=== PATIENT | female | born 1985 | race Caucasian/White ===

== ENCOUNTER 2020-06-12 11:27 | Emergency (ER) | payer SELFPAY ==
[2020-06-12 11:28] VITALS: BP 147/82; PULSE 122; RESP 16; TEMP 36.2; O2SAT 100; BMI 20.1
--- NOTE | 2020-06-12 12:13 | CT_ITS ---
EXAM: CT ABDOMEN AND PELVIS WITH INTRAVENOUS CONTRAST CLINICAL INDICATION: LLQ pain, bright blood in stool. No prior abdomen surgery. TECHNIQUE: Helically acquired images were obtained of the abdomen and pelvis with intravenous contrast. This CT exam was performed using one or more of the following dose reduction techniques: automated exposure control, adjustment of the mA and/or kV according to patient size, and/or use of iterative reconstruction technique. This report was created using [employer] report generation technology. CONTRAST: IV 100mL Isovue-370 COMPARISON: None. FINDINGS: LOWER THORAX: Unremarkable. Lung bases are clear. No cardiomegaly. No significant pericardial effusion. ABDOMEN: LIVER: Unremarkable. Homogeneous. No focal mass. GALLBLADDER AND BILE DUCTS: The gallbladder is contracted. No calcified gallstones. No gallbladder distention or wall edema. No intra- or extrahepatic biliary ductal dilation. PANCREAS: Unremarkable. No focal cystic or solid mass. SPLEEN: Unremarkable. Normal size without focal cystic or solid mass. ADRENALS: Unremarkable. No nodules. KIDNEYS AND URETERS: Unremarkable. Normal renal size and position. No hydronephrosis. STOMACH AND BOWEL: Moderate fecal retention. No stomach or bowel distention. No focal inflammatory change. PELVIS: APPENDIX: No evidence of acute appendicitis. BLADDER: Unremarkable. REPRODUCTIVE: Unremarkable as visualized. No mass. ABDOMEN and PELVIS: INTRAPERITONEAL SPACE: Small ovarian follicles. No pelvic free fluid. No free air. BONES/JOINTS: Unremarkable. No suspicious lytic or blastic abnormality. SOFT TISSUES: Unremarkable. No discrete abdominal or pelvic wall hernia. VASCULATURE: Unremarkable. Abdominal aorta is non-dilated. LYMPH NODES: Unremarkable. No enlarged lymph nodes. CT/Abdomen/Pelvis W IV Cont ONLY IMPRESSION: No acute inflammatory process or bowel obstruction. Electronically Signed: Chuck Dorsey MD ([place]) at 14:12 EST , Service support ,
[2020-06-12 12:47] LABS: Bacteria 0 SEEN /hpf (None Seen); Color, Urine Yellow (Yellow); Glucose, Dipstick Normal (Normal); Ketone-Dipstick Negative (Negative); Leukocyte Esterase-Dipstick 500 /ul (Negative); Mucous, Urine 0 SEEN /hpf (<or=2+); Nitrite-Dipstick Negative (Negative); Occult Blood-Urine 150 /ul (Negative); Protein-Dipstick Negative (Negative); Red Blood Cells-Urine 0 SEEN /hpf (0-5); Specific Gravity, Urine 1.015 (1.002-1.030); Urine Bilirubin Dipstick Negative (Negative); Urine Clarity Sl. Cloudy (Clear); Urine Urobilinogen Normal (Normal)
[2020-06-12 12:55] LABS: Squamous Epithelial Cells - UA 5-10 SEEN /hpf (5-10); White Blood Cells 5-10 SEEN /hpf (0-5)
[2020-06-12 13:21] LABS: ALB/GLOB Ratio 0.9 RATIO (0.9-2.4); AST(SGOT) 13 U/L (15-37); Alanine Aminotransfer ALT/SGPT 17 U/L (13-56); Albumin, Serum 3.7 g/dL (3.2-5.0); Alkaline Phosphatase 74 U/L (45-117); Anion Gap 4 (5-15); BUN 9 mg/dL (7-18); BUN/Creat Ratio 13.7 RATIO (10-20); Chloride 106 mmol/L (98-107); Creatinine, Serum 0.66 mg/dL (0.55-1.02); EST Glomerular Filtration Rate 109 mL/min (>60); Est Glom Filt Rate - Afr Amer 132 mL/min (>60); Estimated Creatinine Clearance 106.49 ml/min; Glucose 75 mg/dL (74-106); Lipase 52 U/L (73-393); Potassium 3.9 mmol/L (3.5-5.1); Protein, Total 7.7 g/dL (6.4-8.2); Sodium Level 138 mmol/L (136-145)
[2020-06-12] MEDS: 0.9% Normal Saline 1,000 ML 1000 ML IV (13:24)
--- NOTE | 2020-06-12 13:33 | ED.DCSUM_ITS ---
History of Present Illness Chief Complaint: Abscess Informant: Patient Narrative: 34-year-old female presenting with 2 main complaints. The first 1 is an abscess that is formed on her left upper arm. Patient states she thinks she got bit by a spider while trying on close at the store. She remembers that this stating it felt like a bite. She had since that time she has had erythema and swelling. She also has drainage from the area on the left shoulder. Patient has not had fever, chills. Patient also states that this morning she had blood in her stool. She states it is more than just when I wipe. Patient does not have any history of bleeding. She is not on a blood thinner. Denies any trauma. She denies history of hemorrhoids. States that she does have some lower abdominal pain which is associated with this. Past Medical History - Allergies and Home Meds Allergies/Adverse Reactions: Allergies No Known Allergies Allergy (Verified 06/12/20 11:28) Primary Care Physician: Jean Marie Oliveros MD [STAFF PHYSICIAN] - Gerson Luna MD [STAFF PHYSICIAN] - Care Physician,No Primary [Primary Care Provider] - Prior records reviewed: Yes Past Medical History: - - Significant medical history Surgical History: noncontributory Lives: Alone Smoking Status: Current every day smoker Alcohol: None Drugs: None Review of Systems General: Reports: Malaise. Denies: Chills, Fever Eyes: Denies: Visual changes - bilaterally, Diplopia ENT: Reports: Bilateral ear pain Cardiovascular: Denies: Chest pain, Palpitations Respiratory: Denies: Dyspnea, Cough, Dyspnea on exertion Gastrointestinal: Reports: Abdominal pain, Hematochezia Genitourinary: Denies: Dysuria, Hematuria Musculoskeletal: Denies: Myalgias, Arthralgias Skin: Reports: Abscess - Upper arm Neurological: Denies: Headache, Weakness Psych: Denies: Depression, Anxiety Physical Exam Vital Signs/Narrative: Vital Signs Temp Pulse Resp BP Pulse Ox 06/12/20 11:28 97.1 F L 122 H 16 147/82 H 100 Inital Vital Signs reviewed: Yes General: Well nourished, No Acute Distress Head: Normocephalic, Atraumatic Eyes: Perrl, EOMI ENT: Moist mucous membranes, No rhinorrhea Cardiovascular: Regular rate, Regular rhythm Abdomen: Soft, Nondistended Rectal: Guaiac positive, - - Small nonbloody nonthrombosed external hemorrhoid Skin: - - 4 cm area abscess in the left upper anterior arm which is actively draining centrally. There is surrounding cellulitic change. Neurological: Alert, Oriented x3 Psychological: Normal affect, Normal Mood Diagnostic/Tx/Re-eval Clinical Impression(s) from Imaging Studies Abdomen/Pelvis CT 06/12/20 12:13 IMPRESSION: No acute inflammatory process or bowel obstruction. Electronically Signed: Chuck Dorsey MD ([place]) at 14:12 EST , Service support , Laboratory Data 06/12/20 06/12/20 06/12/20 12:38 12:55 12:55 WBC Cancelled Corrected WBC Cancelled RBC Cancelled Hgb Cancelled Hct Cancelled MCV Cancelled MCH Cancelled MCHC Cancelled RDW Std Deviation Cancelled RDW Coeff of Marisol Cancelled Plt Count Cancelled MPV Cancelled Immature Gran % (Auto) Cancelled Neut % (Auto) Cancelled Lymph % (Auto) Cancelled Whitman % (Auto) Cancelled Eos % (Auto) Cancelled Baso % (Auto) Cancelled Absolute Neuts (auto) Cancelled Absolute Lymphs (auto) Cancelled Total Counted Cancelled Neutrophils % (Manual) Cancelled Band Neutrophils % Cancelled Lymphocytes % (Manual) Cancelled Monocytes % (Manual) Cancelled Eosinophils % (Manual) Cancelled Basophils % (Manual) Cancelled Metamyelocytes % Cancelled Myelocytes % Cancelled Promyelocytes % Cancelled Blast Cells % Cancelled Plasma Cell % (Manual) Cancelled Other Cells % Cancelled Nucleated RBC % Cancelled Nucleated RBCs/100 WBC Cancelled Differential Comment Cancelled Diff Path Review Cancelled Hypersegmented Neuts Cancelled Atypical Lymphocytes Cancelled Reactive Lymphocytes Cancelled Smudge Cells Cancelled Toxic Granulation Cancelled Toxic Vacuolation Cancelled Dohle Bodies Cancelled Loan Rods Cancelled Platelet Estimate Cancelled Plt Morphology Comment Cancelled RBC Morphology Cancelled Polychromasia Cancelled Hypochromasia Cancelled Poikilocytosis Cancelled Basophilic Stippling Cancelled Anisocytosis Cancelled Microcytosis Cancelled Macrocytosis Cancelled Spherocytes Cancelled Sickle Cells Cancelled Target Cells Cancelled Tear Drop Cells Cancelled Ovalocytes Cancelled Stomatocytes Cancelled [place] Bodies Cancelled [place] Cells Cancelled Bite Cells Cancelled Crenated Cell Cancelled Acanthocytes (Spur) Cancelled Rouleaux Cancelled Schistocytes Cancelled Sodium 138 Potassium 3.9 Chloride 106 Carbon Dioxide 28.0 Anion Gap 4 L BUN 9 Creatinine 0.66 Estim Creat Clear Calc 106.49 Est GFR (MDRD) Af Amer 132 Est GFR (MDRD) Non-Af 109 BUN/Creatinine Ratio 13.7 Glucose 75 Calcium 9.0 Total Bilirubin 0.30 AST 13 L ALT 17 Alkaline Phosphatase 74 Total Protein 7.7 Albumin 3.7 Globulin 4.0 Albumin/Globulin Ratio 0.9 Lipase 52 L Serum , Qual Urine Color Yellow Urine Clarity Sl. Cloudy Urine pH 7.0 Ur Specific [place] 1.015 Urine Protein Negative Urine Glucose (UA) Normal Urine Ketones Negative Urine Occult Blood 150 H Urine Nitrite Negative Urine Bilirubin Negative Urine Urobilinogen Normal Ur Leukocyte Esterase 500 H Urine RBC 0 SEEN Urine WBC 5-10 SEEN Ur Squamous Epith Cells 5-10 SEEN Urine Bacteria 0 SEEN Urine Mucus 0 SEEN 06/12/20 06/12/20 13:20 13:24 WBC 8.9 Corrected WBC RBC 4.38 Hgb 13.1 Hct 40.0 MCV 91.3 MCH 29.9 MCHC 32.8 RDW Std Deviation 42.3 RDW Coeff of Marisol 12.6 Plt Count 272 MPV 9.3 Immature Gran % (Auto) 0.400 Neut % (Auto) 63.9 Lymph % (Auto) 26.1 Whitman % (Auto) 8.4 Eos % (Auto) 0.8 Baso % (Auto) 0.4 Absolute Neuts (auto) 5.7 Absolute Lymphs (auto) 2.32 Total Counted Neutrophils % (Manual) Band Neutrophils % Lymphocytes % (Manual) Monocytes % (Manual) Eosinophils % (Manual) Basophils % (Manual) Metamyelocytes % Myelocytes % Promyelocytes % Blast Cells % Plasma Cell % (Manual) Other Cells % Nucleated RBC % 0 Nucleated RBCs/100 WBC Differential Comment Diff Path Review Hypersegmented Neuts Atypical Lymphocytes Reactive Lymphocytes Smudge Cells Toxic Granulation Toxic Vacuolation Dohle Bodies Loan Rods Platelet Estimate Plt Morphology Comment RBC Morphology Polychromasia Hypochromasia Poikilocytosis Basophilic Stippling Anisocytosis Microcytosis Macrocytosis Spherocytes Sickle Cells Target Cells Tear Drop Cells Ovalocytes Stomatocytes [place] Bodies [place] Cells Bite Cells Crenated Cell Acanthocytes (Spur) Rouleaux Schistocytes Sodium Potassium Chloride Carbon Dioxide Anion Gap BUN Creatinine Estim Creat Clear Calc Est GFR (MDRD) Af Amer Est GFR (MDRD) Non-Af BUN/Creatinine Ratio Glucose Calcium Total Bilirubin AST ALT Alkaline Phosphatase Total Protein Albumin Globulin Albumin/Globulin Ratio Lipase Serum , Qual NEGATIVE Urine Color Urine Clarity Urine pH Ur Specific [place] Urine Protein Urine Glucose (UA) Urine Ketones Urine Occult Blood Urine Nitrite Urine Bilirubin Urine Urobilinogen Ur Leukocyte Esterase Urine RBC Urine WBC Ur Squamous Epith Cells Urine Bacteria Urine Mucus - Medical Decision Making Patient presents with abscess on the left upper arm which is actively draining with small amount of surrounding cellulitis. She is fairly convinced that he was actually bit by a spider. Patient also complains of some lower abdominal pain as well as a small amount of blood in her stool this morning. Patient was found to be Hemoccult positive and no blood was visualized. She had a small nonbleeding nonthrombosed hemorrhoid. Patient's hemoglobin is stable however. She is not hypotensive. From the standpoint I feel she is safe to be discharged home and was given follow-up with Dr. Oliveros as well as the on-call primary care. I did obtain a CT scan of her abdomen pelvis given she had some lower abdominal pain however this was negative for acute findings. Patient's abscess was actively draining I did incise the area and made a incision in the midline however patient asked me to stop the incision. She did let me partially deloculated however again she did ask me to stop. I counseled her that likely there are more the loculations and there and the incision and drainage is incomplete. She did however let me irrigate it some. Patient will be started on Bactrim with first dose given in the ED. Again she was given follow-up as well as return precautions. Impression: 1. Abscess left arm 2. Abdominal pain 3. GI bleed stable Procedures Procedure(s): Incision and drainage: Patient's abscess on her left arm was cleansed with chlorhexidine. Approximately 7 cc of lidocaine with out epinephrine was injected into the abscess and around surrounding skin. Incision was made centrally and extended to 1.5 cm. Purulent drainage was expressed. Wound was partially loculated however on patient request ID was stopped. ED Disposition - Plan for ED Patient: Disposition: Home or Assisted Living Instructions: ED Abscess Incision And Drainage, ED Cellulitis, ED Lower GI Bleeding (Stable) Prescriptions: Smz/Tmp Ds [Bactrim Ds] 1 tab PO BID #14 tab Transmission Status: Received by [id number] Referrals: Care Physician,No Primary [Primary Care Provider] - Jean Marie Oliveros MD [STAFF PHYSICIAN] - Gerson Luna MD [STAFF PHYSICIAN] -
[2020-06-12 13:40] LABS: Internal QC Validated? YES +Cl - CLEAR BKGD; Pregnancy, Serum, hCG Quali. NEGATIVE Negative
[2020-06-12 14:08] LABS: Absolute Lymphocyte Count 2.32 X10^3/uL (0.83-4.51); Absolute Neutrophil Count 5.7 X10^3/uL (2.0-7.7); Basophil# 0.04 X10^3/uL; Basophil% 0.4 % (0-1); Eosinophil# 0.07 X10^3/uL; Eosinophils% 0.8 % (0-5); Hemoglobin 13.1 g/dL (12.0-15.0); Lymphocyte # 2.32 X10^3/ul (4.0); Lymphocyte % 26.1 % (19-41); Mean Corp Hgb Conc 32.8 g/dL (32-36); Mean Corpuscular Hgb 29.9 pg (27.0-32.0); Mean Corpuscular Volume 91.3 fL (81-99); Mean Platelet Vol. 9.3 fl (6.2-12.0); Monocyte# 0.75 X10^3/uL; Monocyte% 8.4 % (0-10); NRBC Flagged by Analyzer 0 % (0-5); Neutrophil # 5.67 X10^3/uL (2.7-7.7); Neutrophil % 63.9 % (47-70); Platelet Count 272 K/mm3 (150-450); RBC Distribution Width CV 12.6 % (11.6-14.6); RBC Distribution Width SD 42.3 fl (35.1-43.9); Red Blood Count 4.38 M/mm3 (4.2-5.4); White Blood Count 8.9 K/mm3 (4.4-11.0)
[2020-06-12] MEDS: Smz/Tmp Ds Tablet 1 TABLET PO (15:26)
== END 2020-06-12 15:51 | disposition home or self-care (01) ==
PROVIDERS: Emergency Provider Student in an Organized Health Care Education/Training Program
DX: L02.414 Cutaneous abscess of left upper limb (principal); R10.32 Left lower quadrant pain; K92.1 Melena; K64.4 Residual hemorrhoidal skin tags; F17.200 Nicotine dependence, unspecified, uncomplicated
CPT/HCPCS: 10060; 74177; 80053; 81001; 82274; 83690; 84703; 85025; 96360; 96361; 99283; J7030; Q9967; A4216

== ENCOUNTER 2020-12-18 21:31 | Emergency (ER) | payer SELFPAY ==
[2020-12-18 21:32] VITALS: BP 160/99; PULSE 99; RESP 18; TEMP 36.2; O2SAT 98; BMI 19.3
--- NOTE | 2020-12-18 21:45 | RAD_ITS ---
HISTORY: trauma EXAMINATION/TECHNIQUE: XR Foot Min 3 Views: COMPARISON: None FINDINGS: BONES/JOINTS: No acute fracture or dislocation. Preservation of the joint spaces. No sclerotic or destructive changes observed. SOFT TISSUES: No soft tissue swelling or gas. Punctate radiodense foreign body in the soft tissues distal to the distal tuft fourth digit. RAD/Foot min 3 Views IMPRESSION: No acute bony abnormality. Punctate radiodense foreign body in the distal soft tissues of the fourth digit. at 2226 Reported and signed by: Siddhartha Nicole MD Electronically Signed: Siddhartha Nicole MD at 22:24 EDT Tel , Service support ,
--- NOTE | 2020-12-18 22:53 | ED.VIS.LOWEX ---
HPI History of Present Illness Chief Complaint: Laceration Informant: patient Narrative Narrative: Patient states that a piece of board with a nail fell onto her foot. The patient states her last tetanus shot was 1 year ago. Patient noted to be screaming sitting in the bed uncontrollably crying.34-year-old female presents the emergency room with laceration over the dorsum of the [facility] Medical History Anxiety Seizure Home Medications NK 12/18/20 [History Last Taken Unknown] Allergy/AdvReac Type Severity Reaction Status Date / Time No Known Allergies Allergy Verified 12/18/20 21:32 Social History (Updated 12/18/20 @ 22:[address] Jean Marie Cullen DO) Smoking Status: Current every day smoker tobacco type: cigarettes substance use type: marijuana ROS ROS ED Constitutional Constitutional ED: Denies chills or weight loss Eyes Eyes: Denies change in vision or diplopia ENT ENT ED: Denies ear pain, rhinorrhea or sore throat Cardiovascular Cardiovascular: Denies chest pain, orthopnea, palpitations or racing heartbeat Respiratory/Chest Respiratory/Chest: Denies cough, dyspnea or orthopnea Gastrointestinal Gastrointestinal: Denies abdominal pain, diarrhea, nausea or vomiting Genitourinary Genitourinary ED: Denies dysuria, hematuria or urinary frequency Musculoskeletal Musculoskeletal: Denies arthralgias or myalgias Integumentary Reports other Details: See HPI ; Denies abscess or rash Neurologic Neurologic: Denies headache(s) or weakness Psychiatric Psychiatric: Denies anxiety, depression, suicidal ideation or suicidal thoughts Endocrine Endocrinology: Denies polydipsia, polyphagia or polyuria Allergic/Immunologic Allergic/Immunologic ED: Denies mouth swelling, tongue swelling or urticaria EXAM Physical Exam Narrative Exam Narrative: The room smells heavily of marijuana. The patient and her significant other are at times sleeping and other times she is screaming and crying. Const Vital Signs: 12/18/20 21:32 Temperature 97.1 F L Temperature Source Temporal Pulse Rate 99 Respiratory Rate 18 Blood Pressure 160/99 H Blood Pressure Mean 119 Pulse Ox 98 Oxygen Delivery Method Room Air Positive well nourished and well developed General Appearance ED: well developed HEENT Reports normocephalic, head/scalp atraumatic and moist mucous membranes Eyes PERRL and EOMs intact bilaterally Neck no lymphadenopathy, supple and no JVD Resp normal respiratory effort and clear to auscultation bilaterally Cardio regular rate, regular rhythm and no murmurs GI normal to inspection, nondistended, normoactive bowel sounds and non-tender Palpation: soft Back/Spine no CVA tenderness and normal ROM Extremity Extremity Narrative: Right wheel truing machine tender to palpation General Extremety ED: Negative for edema General Extremity: Negative for edema Neuro oriented x3 and CN's II-XII intact bilaterally Sensorium / Orientation: alert Motor Exam: strength 5/5 throughout Psych mental status grossly normal Mood & Affect: Negative for depressed or tearful Skin no rashes or lesions noted Skin Narrative: Just proximal to the fifth MCP joint is a horizontally angled laceration measuring approximately 2.5 cm. Neurovascular intact Rashes: no rashes MDM MDM MDM Narrative Medical decision making narrative: My interpretation of plain films of the foot is no acute fracture. Wound was locally anesthetized using 1% lidocaine and explored. There appears to be an extensor tendon to the fifth digit that appears to be lacerated. Wound was irrigated with 200 cc of sterile saline washed with Shur-Clens. It was closed using 6 simple interrupted 4-0 Ethilon sutures. Patient will be advised to follow-up with podiatry. I will get start her on Keflex Radiography Diagnostic Testing: Radiology Impression Foot X-Ray 12/18/20 21:45 IMPRESSION: No acute bony abnormality. Punctate radiodense foreign body in the distal soft tissues of the fourth digit. at 2226 Reported and signed by: Siddhartha Nicole MD Electronically Signed: Siddhartha Nicole MD at 22:24 EDT Tel , Service support , Discharge Plan Triage Chief Complaint: Laceration ED Provider: Jean Marie Cullen Dx/Rx/DC Orders Clinical Impression: Laceration of dorsum of right foot, Laceration of extensor tendon of foot Instructions: ED Laceration, Foot: All Closures, ED Tendon Laceration Prescriptions: No Action NK RF: 0 Primary Care Provider: Care Physician,No Primary Referrals: Rebecca Gonzales DPM [STAFF PHYSICIAN] - As soon as possible Care Physician,No Primary [Primary Care Provider] - Disposition Disposition: Home, Self Care
[2020-12-18] MEDS: Cephalexin 250 MG Capsule 500 MG PO (23:06)
[2020-12-18] MEDS: Lidocaine 1% (20 ml mdv) 20 ML Vial INFILT (23:06)
== END 2020-12-18 23:17 | disposition home or self-care (01) ==
PROVIDERS: Emergency Provider Emergency Medicine
DX: S91.311A Laceration without foreign body, right foot, initial encounter (principal); W20.8XXA Other cause of strike by thrown, projected or falling object, initial encounter; Y93.9 Activity, unspecified; Y92.9 Unspecified place or not applicable; Y99.9 Unspecified external cause status; F17.210 Nicotine dependence, cigarettes, uncomplicated
CPT/HCPCS: 12001; 73630; 99284

== ENCOUNTER 2021-03-27 14:27 | Emergency (ER) | payer SELFPAY ==
[2021-03-27 14:27] VITALS: BP 128/86; PULSE 127; RESP 20; TEMP 38.7; O2SAT 100; BMI 20.9
--- NOTE | 2021-03-27 15:08 | CT_ITS ---
STUDY: CT ABDOMEN AND PELVIS WITH CONTRAST REASON FOR EXAM: Female, 35 years old. Abdominal pain right lower quadrant pain RADIATION DOSAGE (If Supplied By Facility): CTDIvol = ( 10.71 ) mGy, DLP = ( 422.92 ) mGycm TECHNIQUE: CT images were obtained from the dome of the diaphragm to the symphysis pubis without oral contrast. Oral and amp; IV Gastrografin and amp; 100mL Isovue-370 was administered. Sagittal and coronal images were reconstructed. Individualized dose optimization techniques were used for this CT. COMPARISON: 12 June 2020 FINDINGS: The visualized lung bases are unremarkable. The visualized portions of the heart are within normal limits. Normal liver. Normal gallbladder and extrahepatic biliary system. Normal spleen. Normal pancreas. Normal bilateral adrenal glands. There is right nephritis. Left kidney is normal. There are no stones or hydronephrosis. Normal visualized stomach. Normal small intestine. Normal colon. The appendix is visualized and appears normal. Normal abdominal aorta. Normal inferior vena cava. Normal retroperitoneum. Normal urinary bladder. Normal abdominal wall. Normal osseous structures. CT/Abdomen/Pelvis WITH Contrast IMPRESSION: Right pyelonephritis. Electronically Signed: Janet Villalta MD at 17:38 EST Tel , Service support ,
[2021-03-27 15:31] LABS: Absolute Lymphocyte Count 0.58 X10^3/uL (0.83-4.51); Absolute Neutrophil Count 9.4 X10^3/uL (2.0-7.7); Basophil# 0.02 X10^3/uL; Basophil% 0.2 % (0-1); Hematocrit 35.2 % (37-47); Hemoglobin 11.8 g/dL (12.0-15.0); Lymphocyte # 0.58 X10^3/ul (0.83-4.51); Lymphocyte % 5.2 % (19-41); Mean Corp Hgb Conc 33.5 g/dL (32-36); Mean Corpuscular Hgb 30.1 pg (27.0-32.0); Mean Corpuscular Volume 89.8 fL (81-99); Mean Platelet Vol. 9.3 fl (6.2-12.0); Monocyte# 1.15 X10^3/uL; Monocyte% 10.2 % (0-10); NRBC Flagged by Analyzer 0 % (0-5); Neutrophil # 9.42 X10^3/uL (2.7-7.7); Neutrophil % 83.9 % (47-70); POSITIVE DIFFERENTIAL YES; Platelet Count 155 K/mm3 (150-450); RBC Distribution Width CV 12.9 % (11.6-14.6); RBC Distribution Width SD 42.2 fl (35.1-43.9); Red Blood Count 3.92 M/mm3 (4.2-5.4); White Blood Count 11.2 K/mm3 (4.4-11.0)
[2021-03-27] MEDS: Morphine 4 MG/ML Syringe IV (15:44)
[2021-03-27] MEDS: 0.9% Normal Saline 1,000 ML 1000 ML IV (15:44)
[2021-03-27] MEDS: Ondansetron 4 MG/2 ML Vial IV (15:44)
[2021-03-27 15:47] LABS: ALB/GLOB Ratio 0.8 RATIO (0.9-2.4); AST(SGOT) 10 U/L (15-37); Alanine Aminotransfer ALT/SGPT 14 U/L (13-56); Albumin, Serum 3.4 g/dL (3.2-5.0); Alkaline Phosphatase 70 U/L (45-117); Anion Gap 6 (5-15); BUN 7 mg/dL (7-18); BUN/Creat Ratio 10.2 RATIO (10-20); Calcium,Total 8.8 mg/dL (8.5-10.1); Chloride 105 mmol/L (98-107); Creatinine, Serum 0.69 mg/dL (0.55-1.02); EST Glomerular Filtration Rate 103 mL/min (>60); Est Glom Filt Rate - Afr Amer 125 mL/min (>60); Estimated Creatinine Clearance 104.93 ml/min; Globulin 4.2 g/dL (2.2-4.2); Glucose 111 mg/dL (74-106); Lipase 21 U/L (73-393); Potassium 3.2 mmol/L (3.5-5.1); Protein, Total 7.6 g/dL (6.4-8.2); Sodium Level 135 mmol/L (136-145)
--- NOTE | 2021-03-27 15:52 | EDS_ITS ---
HPI HPI - GI History of Present Illness Chief Complaint: Abd Pain Informant: patient Abdominal Pain/Flank Pain Onset: Yesterday Context: Gradual Onset Timing: Continuous Quality: Sharp Location: RUQ Worsened by: Nothing Relieved by: Nothing Nausea/Vomiting/Emesis GI Symptom: Positive for Nausea and Vomiting Quality: Negative for Blood streaks, Coffee ground and Hematemesis Diarrhea/Melena/Hematochezia GI Symptom: Positive for Hematochezia Onset: Yesterday Stool Quality: Positive for BRB per rectum Associated Symptoms Associated Symptoms: Positive for Dysuria and Urgency Narrative Narrative: Patient presents with abdominal pain that began yesterday. Patient states the pain has been constant. Patient states the pain is sharp. Patient states pain is over the right upper quadrant. Patient states nothing makes it worse and nothing makes it better. Patient states the pain radiates into her back. Patient admits to some nausea and vomiting but denies any hematemesis or coffee-ground emesis. Patient does admit to some blood in her stools. Patient also admits to some dysuria and urgency. Patient states her temperature at home has been up to 101. PFSH [facility] Medical History Anxiety Gallbladder calculus Seizure Home Medications NK 03/27/21 [History Last Taken Unknown] ciprofloxacin HCl 500 mg PO BID #20 tablet 03/27/21 [Rx Last Taken Unknown] Allergy/AdvReac Type Severity Reaction Status Date / Time No Known Allergies Allergy Verified 03/27/21 14:27 Social History Smoking Status: Current every day smoker tobacco type: cigarettes substance use type: marijuana ROS ROS ED Constitutional Constitutional ED: Reports chills and fever(s) Eyes Eyes: Denies blurry vision or change in vision ENT ENT ED: Reports rhinorrhea and sore throat Cardiovascular Cardiovascular: Denies chest pain or palpitations Respiratory/Chest Respiratory/Chest: Reports dyspnea; Denies cough Gastrointestinal Gastrointestinal: Denies nausea or vomiting Genitourinary Genitourinary ED: Denies dysuria or hematuria Musculoskeletal Musculoskeletal: Reports back pain; Denies neck pain Integumentary Denies abscess or rash Neurologic Neurologic: Reports headache(s); Denies weakness Allergic/Immunologic Allergic/Immunologic ED: Denies mouth swelling or urticaria EXAM Physical Exam Const Vital Signs: 11/21/21 14:27 03/27/21 17:34 Temperature 101.7 F H Temperature Source Temporal Pulse Rate 127 H 64 Respiratory Rate 20 H 15 Blood Pressure 128/86 H 129/57 H Blood Pressure Mean 100 81 Pulse Ox 100 97 Oxygen Delivery Method Room Air Room Air Positive well nourished and well developed General Appearance ED: well developed HEENT Reports moist mucous membranes Neck supple and no JVD Resp normal respiratory effort and clear to auscultation bilaterally Cardio regular rate, regular rhythm and no murmurs GI normal to inspection, nondistended, normoactive bowel sounds Palpation: soft and tender RUQ and Dumont's sign; Negative for guarding or rebound tenderness present Extremity normal to inspection General Extremety ED: Negative for edema or tenderness General Extremity: Negative for edema Neuro oriented x3, CN's II-XII intact bilaterally and no sensory deficits noted Sensorium / Orientation: alert Motor Exam: strength 5/5 throughout Psych mental status grossly normal Skin no rashes or lesions noted MDM MDM MDM Narrative Medical decision making narrative: Patient was given IV fluids, morphine, and Zofran. Patient was given a dose of Tylenol for her fever. CBC shows a slight leukocytosis of 11.2. Hemoglobin was 11.8 hematocrit was 35.2. Comprehensive metabolic profile was essentially within normal limits. Lipase was normal. Urinalysis shows leukocyte esterase of 500 with 50-100 red blood cells and 25-50 white blood cells. There were 5-10 epithelial cells. There is 3+ bacteria. CT scan of the abdomen and pelvis was obtained. There is evidence of pyelonephritis on the right. Patient was given a dose of Rocephin here. Patient was given prescription for Cipro. Patient was instructed to follow-up with her primary care physician in 3 to 5 days. Patient understood and was agreeable with the plan. All questions were answered. Lab Data Attestation: I reviewed the patient's lab results. Labs: Laboratory Results - last 24 hr 03/27/21 03/27/21 03/27/21 15:20 15:20 17:35 WBC 11.2 H RBC 3.92 L Hgb 11.8 L Hct 35.2 L MCV 89.8 MCH 30.1 MCHC 33.5 RDW Std Deviation 42.2 RDW Coeff of Marisol 12.9 Plt Count 155 MPV 9.3 Immature Gran % (Auto) 0.500 Neut % (Auto) 83.9 H Lymph % (Auto) 5.2 L Ray % (Auto) 10.2 H Eos % (Auto) 0.0 Baso % (Auto) 0.2 Absolute Neuts (auto) 9.4 H Absolute Lymphs (auto) 0.58 L Nucleated RBC % 0 Differential Comment SEE COMMENT Platelet Estimate ADEQUATE Anisocytosis RARE Sodium 135 L Potassium 3.2 L Chloride 105 Carbon Dioxide 24.0 Anion Gap 6 BUN 7 Creatinine 0.69 Estim Creat Clear Calc 104.93 Est GFR (MDRD) Af Amer 125 Est GFR (MDRD) Non-Af 103 BUN/Creatinine Ratio 10.2 Glucose 111 H Calcium 8.8 Total Bilirubin 0.80 AST 10 L ALT 14 Alkaline Phosphatase 70 Total Protein 7.6 Albumin 3.4 Globulin 4.2 Albumin/Globulin Ratio 0.8 L Lipase 21 L Urine Color Yellow Urine Clarity Cloudy Urine pH 6.5 Ur Specific [place] 1.010 Urine Protein 30 H Urine Glucose (UA) Normal Urine Ketones Negative Urine Occult Blood 250 H Urine Nitrite Negative Urine Bilirubin Negative Urine Urobilinogen Normal Ur Leukocyte Esterase 500 H Urine RBC 50-100 SEEN Urine WBC 25-50 SEEN Ur Squamous Epith Cells 5-10 SEEN Urine Bacteria 3+ Urine Mucus 0 SEEN Radiography Diagnostic Testing: Clinical Impression(s) from Imaging Studies Abdomen/Pelvis CT 03/27/21 15:08 IMPRESSION: Right pyelonephritis. Electronically Signed: Janet Villalta MD at 17:38 EST Tel , Service support , Discharge Plan Triage Chief Complaint: Abd Pain ED Provider: Jackson Shen Dx/Rx/DC Orders Clinical Impression: Pyelonephritis of right kidney Instructions: ED Pyelonephritis, Female (Adult) Prescriptions: New ciprofloxacin HCl [ciprofloxacin HCl] 500 MG tablet 500 mg PO BID Qty: 20 RF: 0 No Action NK RF: 0 Primary Care Provider: Care Physician,No Primary Referrals: Dom Lyons DO [STAFF PHYSICIAN] - 3-5 Days Care Physician,No Primary [Primary Care Provider] - Disposition Disposition: Home, Self Care
[2021-03-27 16:44] LABS: Differential Indicated SCAN CRITERIA MET
[2021-03-27 16:46] LABS: Anisocytosis RARE; Platelet Estimate ADEQUATE (ADEQ)
[2021-03-27 17:34] VITALS: BP 129/57; PULSE 64; RESP 15; O2SAT 97
[2021-03-27 17:40] LABS: Mucous, Urine 0 SEEN /hpf (<or=2+)
[2021-03-27 17:45] LABS: Color, Urine Yellow (Yellow); Glucose, Dipstick Normal (Normal); Ketone-Dipstick Negative (Negative); Leukocyte Esterase-Dipstick 500 /ul (Negative); Nitrite-Dipstick Negative (Negative); Occult Blood-Urine 250 /ul (Negative); Protein-Dipstick 30 mg/dl (Negative); Urine Bilirubin Dipstick Negative (Negative); Urine Clarity Cloudy (Clear); Urine Urobilinogen Normal (Normal); Urine pH 6.5 (5.0 - 8.0)
[2021-03-27 17:55] LABS: Red Blood Cells-Urine 50-100 SEEN /hpf (0-5)
[2021-03-27 17:56] LABS: White Blood Cells 25-50 SEEN /hpf (0-5)
[2021-03-27] MEDS: Acetaminophen 500 MG Tablet 1000 MG PO (17:56)
--- NOTE | 2021-03-27 17:56 | ED.RN ---
PT WAS SLEEPING WITH NO DISTRESS NOTED WHEN AWAKENED TO GET A URINE SAMPLE. AT THAT TIME S.O. WAS NOT IN THE ROOM. NOW S.O. IS BACK IN THE ROOM AND PT IS SHIVERING AND EVEN WITH ANOTHER BLANKET PT IS C/O BEING COLD, HANDS BEING NUMB AND HAVING SO MUCH PAIN. TYLENOL WAS GIVEN AND EXPLAINED ANTIBIOTICS WOULD BE GIVEN SOON IT ARRIVES FROM PHARMACY. S.O, STATES SHE HAS A HIGH TOLERANCE FOR PAIN SO THIS HAS TO BE BAD. EXPLAINED THE DR WILL BE IN SOON HE CAN AND HE IS AWARE THAT SHE WANTS HIM TO SEE THAT HER SIDE IS BECKA A BRICK
[2021-03-27 17:57] LABS: Bacteria 3+ /hpf (None Seen); Squamous Epithelial Cells - UA 5-10 SEEN /hpf (5-10)
[2021-03-27] MEDS: Ceftriaxone 1 GM/50 ML BAG IV (18:14)
[2021-03-27 18:59] VITALS: BP 131/79; PULSE 88; RESP 15; O2SAT 96
== END 2021-03-27 18:59 | disposition home or self-care (01) ==
PROVIDERS: Emergency Provider Emergency Medicine
DX: N12 Tubulo-interstitial nephritis, not specified as acute or chronic (principal); K92.1 Melena; F17.210 Nicotine dependence, cigarettes, uncomplicated
CPT/HCPCS: 74177; 80053; 81001; 83690; 85025; 87077; 87086; 87088; 87186; 96361; 96365; 96375; 99283; J7030; J7050; Q9967; A4216; J2405